=== PATIENT | male | born 1965 | race Caucasian/White ===

== ENCOUNTER 2020-11-06 10:59 | Inpatient (IN) | payer MEDICAID ==
[~2020-11-06] VITALS: Ht 160 cm; Wt 69.4 kg
[2020-11-06] MEDS ORDERED: ACETAMINOPHEN 325MG TABLET PO ONE (11:30)
[2020-11-06 11:55] LABS: BASOPHILS % 0.7 % (0.0-2.0); EOSINOPHILS % 0.7 % (0.0-5.0); HEMATOCRIT. 37.4 % (42.0-52.0); HEMOGLOBIN. 12.4 g/dL (14.0-18.0); LYMPHOCYTES % 7.4 % (20.0-50.0); MEAN CORPUSCULAR VOLUME 84.7 fL (80.0-94.0); MEAN PLATELET VOLUME 6.4 fl (7.4-10.4); MONOCYTES % 6.8 % (2.0-8.0); NEUTROPHILS % 84.4 % (40.0-76.0); PLATELET 363 x1000/uL (130-400); RED BLOOD CELL COUNT 4.42 mill/uL (4.7-6.1); RED CELL DISTRIBUTION WIDTH 13.8 % (11.6-14.6)
[2020-11-06 12:01] LABS: CHLORIDE 105 mEq/L (98-107)
[2020-11-06 12:04] LABS: CLARITY URINE CLEAR (CLEAR); COLOR URINE YELLOW (YELLOW); KETONES URINE 4+ (NEGATIVE); LEUKOCYTE ESTERASE URINE NEGATIVE (NEGATIVE); NITRITE URINE NEGATIVE (NEGATIVE); OCCULT BLOOD URINE NEGATIVE (NEGATIVE); PH URINE 6.5 (4.5-8.0); PROTEIN URINE 1+ (NEGATIVE); SPECIFIC GRAVITY URINE 1.029 (1.005-1.030)
[2020-11-06] MEDS ORDERED: DEXAMETHASONE 4MG/ML 1ML VIAL IV ONE (12:15)
[2020-11-06] MEDS ORDERED: ONDANSETRON HCL 4MG/2ML INJ IV PRN (16:45)
[2020-11-06] MEDS ORDERED: DOCUSATE SODIUM 100MG CAPSULE PO PRN (16:45)
[2020-11-06] MEDS ORDERED: AZITHROMYCIN 500 MG in DEXT 5% WATER 250 ML IV SCH (16:45)
[2020-11-06] MEDS ORDERED: KCL 10MEQ/50ML PREMIX 50 ML IV NR (16:45)
[2020-11-06] MEDS ORDERED: CLONIDINE 0.1MG TABLET PO PRN (16:45)
[2020-11-06] MEDS ORDERED: MAGNESIUM/ALUMINUM HYDROXIDE/SIMETHICONE 30ML UDC PO PRN (16:45)
[2020-11-06 16:59] VITALS: BP 122/68
[2020-11-06] MEDS ORDERED: CEFTRIAXONE 1 G PREMIX 50 ML IV SCH (17:00)
[2020-11-06] MEDS ORDERED: METF-414 PO (17:15)
[2020-11-06] MEDS ORDERED: PRED10TA23 PO (17:17)
[2020-11-06] MEDS: CEFTRIAXONE 1,000 MG in DEXTROSE 5% WATER 50 ML IV SCH (18:07)
[2020-11-06] MEDS: AZITHROMYCIN 500MG in DEXTROSE 5% WATER 250ML IV SCH (18:07)
[2020-11-06] MEDS: GUAIFENESIN 200MG/10ML SUGAR FREE UDC PO PRN (18:08)
[2020-11-06] MEDS: METOPROLOL TARTRATE 25MG TABLET PO SCH (18:08)
[2020-11-06] MEDS: ACETAMINOPHEN 325MG TABLET PO PRN (18:26)
[2020-11-06 20:00] VITALS: BP 145/58
[2020-11-06] MEDS: HYDROCODONE/ACETAMINOPHEN 5/325MG TABLET PO PRN (22:42)
[2020-11-07] VITALS: BP 138/66
[2020-11-07 04:00] VITALS: BP 136/64
[2020-11-07 06:17] LABS: CHLORIDE 105 mEq/L (98-107); HEMATOCRIT. 36.2 % (42.0-52.0); HEMOGLOBIN. 12.4 g/dL (14.0-18.0); MEAN CORPUSCULAR VOLUME 84.9 fL (80.0-94.0); MEAN PLATELET VOLUME 6.3 fl (7.4-10.4); PLATELET 311 x1000/uL (130-400); RED BLOOD CELL COUNT 4.26 mill/uL (4.7-6.1)
[2020-11-07] MEDS: METOPROLOL TARTRATE 25MG TABLET PO SCH ×2 (09:00→17:00)
[2020-11-07] MEDS: GUAIFENESIN 200MG/10ML SUGAR FREE UDC PO PRN (09:39)
[2020-11-07] MEDS: ACETAMINOPHEN 325MG TABLET PO PRN (09:39)
[2020-11-07] MEDS: DEXAMETHASONE 4MG/ML 1ML VIAL IV SCH (09:40)
[2020-11-07 12:00] VITALS: BP 139/65
[2020-11-07] MEDS: ENOXAPARIN 30MG/0.3ML SYR SUBCUT SCH ×2 (13:08→22:17)
[2020-11-07] MEDS ORDERED: ALBUTEROL 6.7GM HFA INHALER ORI PRN (13:30)
[2020-11-07] MEDS ORDERED: GUAIFENESIN-DM 200MG-20MG/10ML UDC PO PRN (13:30)
[2020-11-07 16:00] VITALS: BP 142/72
[2020-11-07] MEDS: AZITHROMYCIN 500MG in DEXTROSE 5% WATER 250ML IV SCH (17:23)
[2020-11-07] MEDS: CEFTRIAXONE 1,000 MG in DEXTROSE 5% WATER 50 ML IV SCH (17:23)
[2020-11-07 18:49] LABS: PLATELET ESTIMATE NORMAL
[2020-11-07 20:00] VITALS: BP 139/76
[2020-11-07] MEDS: HYDROCODONE/ACETAMINOPHEN 5/325MG TABLET PO PRN (22:16)
[2020-11-08 00:05] VITALS: BP 125/69
[2020-11-08 04:00] VITALS: BP 136/79
[2020-11-08 08:00] VITALS: BP 129/106
[2020-11-08] MEDS: DEXAMETHASONE 4MG/ML 1ML VIAL IV SCH (08:20)
[2020-11-08] MEDS: GUAIFENESIN 200MG/10ML SUGAR FREE UDC PO PRN (08:20)
[2020-11-08] MEDS: METOPROLOL TARTRATE 25MG TABLET PO SCH ×2 (08:20→17:45)
[2020-11-08] MEDS ORDERED: DEXTROSE 50% WATER 50ML SYRINGE IV PRN (09:15)
[2020-11-08] MEDS: BLOOD SUGAR DIAGNOSTIC STRIP TEST SCH ×3 (11:57→20:40)
[2020-11-08 12:00] VITALS: BP 132/85
[2020-11-08] MEDS: ENOXAPARIN 30MG/0.3ML SYR SUBCUT SCH (12:10)
[2020-11-08] MEDS: INSULIN LISPRO 100 UNITS/ML SUBCUT SCH ×3 (12:11→21:00)
[2020-11-08 16:00] VITALS: BP 125/82
[2020-11-08] MEDS: AZITHROMYCIN 500MG in DEXTROSE 5% WATER 250ML IV SCH (17:45)
[2020-11-08] MEDS: CEFTRIAXONE 1,000 MG in DEXTROSE 5% WATER 50 ML IV SCH (17:45)
[2020-11-08 20:00] VITALS: BP 135/88
[2020-11-09] VITALS (7 sets, daily range): BP systolic 112–142; BP diastolic 70–87
[2020-11-09] MEDS: BLOOD SUGAR DIAGNOSTIC STRIP TEST SCH ×4 (05:37→21:09)
[2020-11-09] MEDS: INSULIN LISPRO 100 UNITS/ML SUBCUT SCH ×4 (05:37→21:00)
[2020-11-09] MEDS: DEXAMETHASONE 4MG/ML 1ML VIAL IV SCH (08:39)
[2020-11-09] MEDS: METOPROLOL TARTRATE 25MG TABLET PO SCH ×2 (08:39→17:19)
[2020-11-09] MEDS: ENOXAPARIN 40MG/0.4ML SYR SUBCUT SCH (08:39)
[2020-11-09] MEDS: GUAIFENESIN 200MG/10ML SUGAR FREE UDC PO PRN (08:39)
[2020-11-09] MEDS: CEFTRIAXONE 1,000 MG in DEXTROSE 5% WATER 50 ML IV SCH (17:18)
[2020-11-09] MEDS: AZITHROMYCIN 500MG in DEXTROSE 5% WATER 250ML IV SCH (17:18)
[2020-11-10] VITALS (7 sets, daily range): BP systolic 114–136; BP diastolic 72–80
[2020-11-10] MEDS: BLOOD SUGAR DIAGNOSTIC STRIP TEST SCH ×4 (06:13→21:00)
[2020-11-10] MEDS: INSULIN LISPRO 100 UNITS/ML SUBCUT SCH ×4 (07:32→21:00)
[2020-11-10] MEDS: ENOXAPARIN 40MG/0.4ML SYR SUBCUT SCH (08:57)
[2020-11-10] MEDS: METOPROLOL TARTRATE 25MG TABLET PO SCH ×2 (08:57→17:30)
[2020-11-10] MEDS: DEXAMETHASONE 4MG/ML 1ML VIAL IV SCH (08:57)
[2020-11-10] MEDS: AZITHROMYCIN 500MG in DEXTROSE 5% WATER 250ML IV SCH (17:30)
[2020-11-10] MEDS: CEFTRIAXONE 1,000 MG in DEXTROSE 5% WATER 50 ML IV SCH (17:30)
[2020-11-11] VITALS: BP 121/66
[2020-11-11 04:00] VITALS: BP 138/69
[2020-11-11] MEDS: INSULIN LISPRO 100 UNITS/ML SUBCUT SCH ×4 (05:49→20:43)
[2020-11-11] MEDS: BLOOD SUGAR DIAGNOSTIC STRIP TEST SCH ×4 (05:49→20:43)
[2020-11-11 08:00] VITALS: BP 135/69
[2020-11-11] MEDS: METOPROLOL TARTRATE 25MG TABLET PO SCH ×2 (08:15→17:16)
[2020-11-11] MEDS: ENOXAPARIN 40MG/0.4ML SYR SUBCUT SCH (08:15)
[2020-11-11] MEDS: DEXAMETHASONE 4MG/ML 1ML VIAL IV SCH (08:15)
[2020-11-11 12:00] VITALS: BP 104/61
[2020-11-11 16:00] VITALS: BP 110/74
[2020-11-12] VITALS: BP 109/76
[2020-11-12 04:00] VITALS: BP_SYST 116; BP_SYST 130; BP_DIAS 66; BP_DIAS 72
[2020-11-12] MEDS: BLOOD SUGAR DIAGNOSTIC STRIP TEST SCH ×4 (05:36→21:17)
[2020-11-12 08:00] VITALS: BP 126/71
[2020-11-12] MEDS: INSULIN LISPRO 100 UNITS/ML SUBCUT SCH ×4 (08:10→21:00)
[2020-11-12] MEDS: ENOXAPARIN 40MG/0.4ML SYR SUBCUT SCH (08:37)
[2020-11-12] MEDS: METOPROLOL TARTRATE 25MG TABLET PO SCH ×2 (08:38→17:56)
[2020-11-12] MEDS: DEXAMETHASONE 4MG/ML 1ML VIAL IV SCH (08:38)
[2020-11-12 12:00] VITALS: BP 122/68
[2020-11-12 16:00] VITALS: BP 116/72
[2020-11-12 20:00] VITALS: BP 104/70
[2020-11-13] VITALS: BP 126/72
[2020-11-13 04:00] VITALS: BP 118/68
[2020-11-13 06:32] LABS: CHLORIDE 101 mEq/L (98-107)
[2020-11-13 06:48] LABS: HEMATOCRIT 40.6 % (42.0-52.0); HEMOGLOBIN 13.5 g/dL (14.0-18.0); MEAN CORPUSCULAR HEMOGLOBIN 28.1 pg (28.0-32.0); MEAN CORPUSCULAR VOLUME 84.8 fL (80.0-94.0); PLATELET 335 x1000/uL (130-400); RED BLOOD CELL COUNT 4.79 mill/uL (4.7-6.1); RED CELL DISTRIBUTION WIDTH 13.8 % (11.6-14.6)
[2020-11-13 07:40] VITALS: BP 132/64
[2020-11-13] MEDS: INSULIN LISPRO 100 UNITS/ML SUBCUT SCH ×2 (08:10→13:02)
[2020-11-13] MEDS: BLOOD SUGAR DIAGNOSTIC STRIP TEST SCH ×2 (08:32→12:52)
[2020-11-13] MEDS: ENOXAPARIN 40MG/0.4ML SYR SUBCUT SCH (08:43)
[2020-11-13] MEDS: DEXAMETHASONE 4MG/ML 1ML VIAL IV SCH (08:43)
[2020-11-13] MEDS: METOPROLOL TARTRATE 25MG TABLET PO SCH (08:43)
[2020-11-13] MEDS ORDERED: DEXA6TAB MT (10:59)
[2020-11-13 11:02] VITALS: BP 118/67
[2020-11-13 12:00] VITALS: BP 113/68
== END 2020-11-13 15:10 | disposition home or self-care (01) | DRG 720 ==
LOC: EDBD 11:18 → ER 11:18 → ENRESERV 15:39 → 7WST 17:16
PROVIDERS: ADMIT Hospitalist; ATTEND Hospitalist
DX: A41.89 Other specified sepsis (principal); J96.01 Acute respiratory failure with hypoxia; J12.82 Pneumonia due to coronavirus disease 2019; U07.1 COVID-19; E43 Unspecified severe protein-calorie malnutrition; E11.9 Type 2 diabetes mellitus without complications; Z68.27 Body mass index [BMI] 27.0-27.9, adult
CPT/HCPCS: 36415; 71045; 80048; 80053; 81003; 82728; 82962; 83036; 83615; 84145; 85025; 85027; 85379; 86140; 93005; 93970; 99291; J0456; J0696; J1100; J1650; J1815; J3480; J7040; J7060; U0003; U0005